=== PATIENT | female | born 1975 | race Caucasian/White ===

== ENCOUNTER 2016-04-22 10:58 | Emergency (ER) | payer OTHER ==
[2016-04-22 13:28] VITALS: BP 120/66
--- NOTE | 2016-04-22 13:54 | UC ---
Throat Pain/Nasal Konstantin HPI - HPI Summary HPI Summary: complaint of sore throat that started 7 days ago nasal congestion pain in the left side of her neck left ear pain sinus pressure and headaches for 2 days feels pressure in her face denies fever and chills not taking any medication for pain at this time - History of Current Complaint Chief Complaint: UCGeneralIllness Stated Complaint: THROAT,LEFT EAR PAIN Time Seen by Provider: 04/22/16 13:48 Hx Obtained From: Patient Hx Last Menstrual Period: 04/01/16 - Allergies/Home Medications Allergies/Adverse Reactions: Allergies Allergy/AdvReac Type Severity Reaction Status Date / Time Naproxen Allergy Intermediate Swelling Verified 04/22/16 13:28 Pseudoephedrine Allergy Swelling Verified 04/22/16 13:28 [From [facility]] Home Medications: Home Medications Ibuprofen TAB* [Motrin TAB* 600 MG] 600 mg PO Q8H PRN 04/22/16 [History Confirmed 04/22/16] Omeprazole CAP* [Prilosec CAP* 20 MG] 20 mg PO DAILY 04/22/16 [History Confirmed 04/22/16] PMH/Surg Hx/FS Hx/Imm Hx Previously Healthy: Yes Endocrine History Of: Denies: Diabetes, Thyroid Disease Cardiovascular History Of: Denies: Cardiac Disorders, Hypertension Respiratory History Of: Reports: Bronchitis Denies: COPD, Asthma GI/ History Of: Denies: Ulcer - Surgical History Surgical History: Yes Surgery Procedure, Year, and Place: C section, R shoulder surgery. D&C WITH REMOVAL OF CYST R SIDE AND BIOPSY OF OVARY--2014 - Family History Known Family History: Positive: Hypertension, Other - Denies FMH sinusitis Negative: Cardiac Disease, Diabetes - Social History Occupation: Employed Full-time Lives: With Family Alcohol Use: None Substance Use Type: None Smoking Status (MU): Heavy Every Day Tobacco Smoker Type: Cigarettes Amount Used/How Often: 1/2 ppd Length of Time of Smoking/Using Tobacco: 22 Years Have You Smoked in the Last Year: Yes Household Exposure Type: Cigarettes Cessation Counseling: Patient Advised to Stop - Immunization History Most Recent Influenza Vaccination: DOES NOT GET FLU SHOT Review of Systems Skin: Negative Eyes: Negative ENT: Sore Throat, Ear Ache, Nasal Discharge Respiratory: Cough Cardiovascular: Negative Gastrointestinal: Negative Genitourinary: Negative Motor: Negative Neurovascular: Negative Musculoskeletal: Negative Neurological: Negative Psychological: Negative All Other Systems Reviewed And Are Negative: Yes Physical Exam Triage Information Reviewed: Yes Appearance: No Pain Distress, Well-Nourished Vital Signs: Initial Vital Signs Temp 99.6 F 04/22/16 13:23 Pulse 81 04/22/16 13:23 Resp 14 04/22/16 13:23 BP 120/66 04/22/16 13:23 Pulse Ox 98 04/22/16 13:23 Vital Signs Reviewed: Yes Eyes: Positive: Conjunctiva Clear ENT: Positive: Pharyngeal erythema, Nasal congestion, Nasal drainage, TM bulging , Tonsillar swelling, Tonsillar exudate, Other: - forntal and maxillary sinus tenderness L more than R. Negative: TM red Neck: Positive: Enlarged Nodes @ - left cervical Respiratory: Positive: Lungs clear, Normal breath sounds, No respiratory distress Cardiovascular: Positive: RRR, No Murmur, Pulses Normal Abdomen Description: Positive: Nontender, Soft Bowel Sounds: Positive: Present Musculoskeletal: Positive: No Edema Neurological: Positive: Alert Psychological Exam: Normal Skin Exam: Normal Throat Pain/Nasal Course/Dx - Differential Dx/Diagnosis Differential Diagnosis/HQI/PQRI: Pharyngitis, Sinusitis, Tonsillitis, URI Provider Diagnoses: sinusitis Discharge - Discharge Plan Condition: Stable Disposition: HOME Prescriptions: Amoxicillin/Clavulanate TAB* [Augmentin TAB 875*] 875 mg PO BID #20 tab Patient Education Materials: Sinusitis (ED) Referrals: Steph Conti MD [Primary Care Provider] - Additional Instructions: SINUSITIS What is Sinusitis? Sinusitis is inflammation or infection of the lining of the sinuses behind the bones in your cheeks or forehead. Sinusitis may occur following a common cold, flu, or other infection; allergies; a tooth infection that spreads to the sinuses; swimming in contaminated water; pressure changes in airplanes at high altitudes; violent sneezing or nose blowing or smoking or breathing other peoples smoke. Symptoms Might Include: Nasal Congestion Sneezing Watery eyes, eye irritation, or eye itching Headaches Pressure in the cheeks Wheezing Trouble smelling Sore throat and coughing may occur Treatment Recommendations: Take medicines as prescribed until completely gone. Drink plenty of fluids. Use saline nose spray to thin the mucous and help the sinuses drain. Use a vaporizer or humidifier. Apply warm compresses to the face or forehead several times a day for 10 to 20 minutes. Call Your Doctor or Return Here IF: Your pain increases during treatment. You develop a high temperature. You develop unusual swelling around the eyes. You have difficulty with your vision. You develop a severe headache, earache, or toothache. You develop increased fever or fever that does not respond to medication such as Tylenol?. You have difficulty breathing or catching your breath. You begin to have any other new symptoms that worry you.
== END 2016-04-22 13:59 | disposition home or self-care (01) ==
LOC: UCCORT 10:58
DX: J32.1 Chronic frontal sinusitis (principal); J32.0 Chronic maxillary sinusitis; F17.210 Nicotine dependence, cigarettes, uncomplicated; Z88.8 Allergy status to other drugs, medicaments and biological substances; Z88.6 Allergy status to analgesic agent
CPT/HCPCS: 99212; G0463

== ENCOUNTER 2016-12-15 11:13 | Emergency (ER) | payer OTHER ==
[2016-12-15 11:53] VITALS: BP 109/58
--- NOTE | 2016-12-15 12:37 | UC ---
Ear Complaint HPI - HPI Summary HPI Summary: Ear pain and fullness, cough, sinus pressure and congestion. left ear pain is severe today. - History of Current Complaint Chief Complaint: UCRespiratory Stated Complaint: FEVER, SINUS PRESSURE Time Seen by Provider: 12/15/16 12:24 Hx Obtained From: Patient Hx Last Menstrual Period: unknown, impl[place] ?: No Onset/Duration: Sudden Onset, Lasting Days Severity Initially: Moderate Severity Currently: Severe Associated Signs/Symptoms: Positive: Hearing Loss, Swelling @, URI Symptoms - Allergies/Home Medications Allergies/Adverse Reactions: Allergies Allergy/AdvReac Type Severity Reaction Status Date / Time Naproxen Allergy Intermediate Swelling Verified 12/15/16 11:53 Pseudoephedrine Allergy Swelling Verified 12/15/16 11:53 [From [facility]] PMH/Surg Hx/FS Hx/Imm Hx Previously Healthy: Yes - Surgical History Surgical History: Yes Surgery Procedure, Year, and Place: C section, R shoulder surgery. D&C WITH REMOVAL OF CYST R SIDE AND BIOPSY OF OVARY--2014 - Family History Known Family History: Positive: Hypertension, Other - Denies FMH sinusitis Negative: Cardiac Disease, Diabetes - Social History Alcohol Use: None Substance Use Type: None Smoking Status (MU): Heavy Every Day Tobacco Smoker Type: Cigarettes Amount Used/How Often: 1/2 ppd Length of Time of Smoking/Using Tobacco: 22 Years Have You Smoked in the Last Year: Yes Household Exposure Type: Cigarettes - Immunization History Most Recent Influenza Vaccination: DOES NOT GET FLU SHOT Review of Systems Constitutional: Fatigue Skin: Negative Eyes: Negative ENT: Sore Throat, Ear Ache, Nasal Discharge, Sinus Congestion Respiratory: Shortness Of Breath, Cough Cardiovascular: Negative Gastrointestinal: Negative Genitourinary: Negative Motor: Negative Neurovascular: Negative Musculoskeletal: Negative Neurological: Headache Is Patient Immunocompromised?: No All Other Systems Reviewed And Are Negative: Yes Physical Exam Triage Information Reviewed: Yes Appearance: Well-Nourished, Ill-Appearing, Pain Distress Vital Signs: Initial Vital Signs Temp 98.7 F 12/15/16 11:49 Pulse 90 12/15/16 11:49 Resp 18 12/15/16 11:49 BP 109/58 12/15/16 11:49 Pulse Ox 100 12/15/16 11:49 Vital Signs Reviewed: Yes Eye Exam: Normal ENT: Positive: Pharyngeal erythema, Nasal congestion, Nasal drainage, TM dull, TM red Dental Exam: Normal Neck exam: Normal Neck: Positive: Supple, Nontender, No Lymphadenopathy Respiratory: Positive: Chest non-tender, Lungs clear, No respiratory distress, No accessory muscle use, Wheezing, Inspiration Cardiovascular Exam: Normal Cardiovascular: Positive: RRR, No Murmur, Pulses Normal Abdominal Exam: Normal Abdomen Description: Positive: Nontender, No Organomegaly, Soft Bowel Sounds: Positive: Present Musculoskeletal Exam: Normal Musculoskeletal: Positive: Strength Intact, ROM Intact, No Edema Neurological Exam: Normal Neurological: Positive: Alert, Muscle Tone Normal Psychological Exam: Normal Skin Exam: Normal Ear Complaint Course/Dx - Course Course Of Treatment: hx obtained, exam performed ,meds reviewed, treated for sinusitis and wheezIng - Differential Dx/Diagnosis Differential Diagnosis/HQI/PQRI: Cerumen Impaction, Otitis Externa, Otitis Media , URI Provider Diagnoses: sinusitis. wheezing Discharge - Discharge Plan Condition: Stable Disposition: HOME Prescriptions: Albuterol HFA INHALER* [Ventolin HFA Inhaler*] 2 puff INH Q4H PRN #1 mdi PRN Reason: Cough Amoxicillin PO (*) [Amoxicillin 875 MG (*)] 875 mg PO BID #20 tab Patient Education Materials: Sinusitis (ED), Warm Compress or Soak (ED) Referrals: Steph Conti MD [Primary Care Provider] - Additional Instructions: 1. Use the medication as prescribed. 2. Get rest and increase fluid intake. 3. Follow up with any worsening symptoms.
== END 2016-12-15 12:38 | disposition home or self-care (01) ==
LOC: UCCORT 11:13
DX: J32.9 Chronic sinusitis, unspecified (principal); F17.210 Nicotine dependence, cigarettes, uncomplicated; R06.2 Wheezing; Z88.6 Allergy status to analgesic agent; Z88.8 Allergy status to other drugs, medicaments and biological substances
CPT/HCPCS: 99212; G0463

== ENCOUNTER 2017-12-09 08:12 | Emergency (ER) | payer BC, MEDICAID, OTHER ==
[2017-12-09 08:25] VITALS: BP 120/75
--- NOTE | 2017-12-09 08:57 | UC ---
Throat Pain/Nasal Konstantin HPI - HPI Summary HPI Summary: sinus pain and pressure x 10 days + nasal congestion, cough , pnd no fever, no chills - History of Current Complaint Chief Complaint: UCGeneralIllness Stated Complaint: SINUS COMPLAINT Time Seen by Provider: 12/09/17 08:28 Hx Obtained From: Patient Hx Last Menstrual Period: tubal / ablasion Onset/Duration: Gradual Onset, Lasting Days - 10, Still Present Severity: Moderate Pain Intensity: 5 Cough: Nonproductive Associated Signs & Symptoms: Positive: Sinus Discomfort, Nasal Discharge, Fever. Negative: Dysphagia, FB Sensation, Drooling, Wheezing, Hoarseness - Allergies/Home Medications Allergies/Adverse Reactions: Allergies Allergy/AdvReac Type Severity Reaction Status Date / Time naproxen Allergy Intermediate Swelling Verified 12/09/17 08:27 pseudoephedrine Allergy Intermediate Swelling Verified 12/09/17 08:27 PMH/Surg Hx/FS Hx/Imm Hx Previously Healthy: Yes GI/ History: Gastroesophageal Reflux - Surgical History Surgical History: Yes Surgery Procedure, Year, and Place: C section, R shoulder surgery. D&C WITH REMOVAL OF CYST R SIDE AND BIOPSY OF OVARY--2014 - Family History Known Family History: Positive: Hypertension, Other - Denies FMH sinusitis Negative: Cardiac Disease, Diabetes - Social History Alcohol Use: None Substance Use Type: None Smoking Status (MU): Heavy Every Day Tobacco Smoker Type: Cigarettes Amount Used/How Often: 1/2 ppd Length of Time of Smoking/Using Tobacco: 22 Years Have You Smoked in the Last Year: Yes Household Exposure Type: Cigarettes - Immunization History Most Recent Influenza Vaccination: DOES NOT GET FLU SHOT Review of Systems Constitutional: Negative Skin: Negative Eyes: Negative ENT: Sore Throat, Nasal Discharge, Sinus Congestion, Sinus Pain/Tenderness Respiratory: Cough Cardiovascular: Negative Is Patient Immunocompromised?: No All Other Systems Reviewed And Are Negative: Yes Physical Exam Triage Information Reviewed: Yes Appearance: Well-Appearing, No Pain Distress, Well-Nourished Vital Signs: Initial Vital Signs Pulse 90 12/09/17 08:22 Resp 18 12/09/17 08:22 BP 120/75 12/09/17 08:22 Pulse Ox 97 12/09/17 08:22 Vital Signs Reviewed: Yes Eye Exam: Normal Eyes: Positive: Conjunctiva Clear ENT: Positive: Normal ENT inspection, Hearing grossly normal, Pharynx normal, Nasal congestion, Nasal drainage, TMs normal Neck exam: Normal Neck: Positive: Supple, Nontender, No Lymphadenopathy Respiratory: Positive: Chest non-tender, Lungs clear, Normal breath sounds Cardiovascular: Positive: RRR, No Murmur, Pulses Normal Skin Exam: Normal Throat Pain/Nasal Course/Dx - Differential Dx/Diagnosis Provider Diagnoses: sinusitis Discharge - Sign-Out/Discharge Documenting (check all that apply): Patient Departure All imaging exams completed and their final reports reviewed: No Studies - Discharge Plan Condition: Stable Disposition: HOME Prescriptions: Amoxicillin/Clavulanate TAB* [Augmentin TAB 875*] 875 mg PO BID #20 tab Patient Education Materials: Sinusitis (ED) Referrals: No Primary Care Phys,NOPCP [Primary Care Provider] - If Needed - Billing Disposition and Condition Condition: STABLE Disposition: Home
== END 2017-12-09 09:06 | disposition home or self-care (01) ==
LOC: UCEAST 08:12
DX: J32.9 Chronic sinusitis, unspecified (principal); Z88.6 Allergy status to analgesic agent; Z88.8 Allergy status to other drugs, medicaments and biological substances; F17.210 Nicotine dependence, cigarettes, uncomplicated
CPT/HCPCS: 99212; G0463

== ENCOUNTER 2018-07-26 07:54 | Emergency (ER) | payer BC ==
--- NOTE | 2018-07-26 08:13 | UC ---
Skin Complaint HPI - HPI Summary HPI Summary: 43 y/o female presents to the urgent care c/o tick bite in her left leg for the past 2 days. Pt reports she removed tick and she thinks it was there for already 2 days since this is where she was outside cleaning her garden. Pt w/ Hx of tick bites in the pat, but has gotten prophylactic treatment. Pt denies pain, rash, REY, fever, joint pain, SOB, chest pain, abdominal pain, N/V/D. - History of Current Complaint Time Seen by Provider: 07/26/18 08:09 Stated Complaint: TICK BITE Hx Obtained From: Patient Hx Last Menstrual Period: tubal / ablasion Onset/Duration: Gradual Onset, Lasting Days - 3 days ago, Resolved - tick removed Skin Exposure Onset/Duration: Days Ago - 5 days ago Timing: Constant Onset Severity: Mild Current Severity: Mild Pain Intensity: 1 - at touch Pain Scale Used: 0-10 Numeric Location: Discrete - inner left thigh Character: Redness Aggravating Factor(s): Touch Alleviating Factor(s): Other - tick removal Associated Signs & Symptoms: Positive: Rash - left inner thigh tick bite. Negative: Fever, Chills Related History: Possible Reaction to: Insect - Allergy/Home Medications Allergies/Adverse Reactions: Allergies Allergy/AdvReac Type Severity Reaction Status Date / Time naproxen Allergy Intermediate Swelling Verified 12/09/17 08:27 pseudoephedrine Allergy Intermediate Swelling Verified 12/09/17 08:27 Home Medications: Home Medications Ibuprofen 200 mg PO Q6HR PRN 07/26/18 [History Confirmed 07/26/18] PMH/Surg Hx/FS Hx/Imm Hx Previously Healthy: Yes GI/ History: Gastroesophageal Reflux - Surgical History Surgical History: Yes Surgery Procedure, Year, and Place: C section, R shoulder surgery. D&C WITH REMOVAL OF CYST R SIDE AND BIOPSY OF OVARY--2014 - Family History Known Family History: Positive: Hypertension, Other - Denies FMH sinusitis Negative: Cardiac Disease, Diabetes Family History: RA - Social History Occupation: Employed Full-time Lives: With Family Alcohol Use: None Substance Use Type: None Smoking Status (MU): Heavy Every Day Tobacco Smoker Type: Cigarettes Amount Used/How Often: 1/2 ppd Length of Time of Smoking/Using Tobacco: 22 Years Have You Smoked in the Last Year: Yes Household Exposure Type: Cigarettes - Immunization History Most Recent Influenza Vaccination: DOES NOT GET FLU SHOT Review of Systems All Other Systems Reviewed And Are Negative: Yes Constitutional: Positive: Negative Skin: Positive: Other - tick bite in the left inner thigh Eyes: Positive: Negative ENT: Positive: Negative Respiratory: Positive: Negative Cardiovascular: Positive: Negative Gastrointestinal: Positive: Negative Genitourinary: Positive: Negative Motor: Positive: Negative Neurovascular: Positive: Negative Musculoskeletal: Positive: Negative Neurological: Positive: Negative Psychological: Positive: Negative Is Patient Immunocompromised?: No Physical Exam - Summary Physical Exam Summary: Vital Signs Reviewed: Yes General: well developed, well nourished female sitting in the examining table w/ o any apparent distress. Eyes: Positive: Conjunctiva Clear - PERRLA, EOMI ENT: Positive: Normal ENT inspection, Hearing grossly normal, Pharynx normal, TMs normal Neck: Positive: Supple, Nontender, No Lymphadenopathy Respiratory: Positive: Chest nontender, Lungs clear, Normal breath sounds Cardiovascular: Positive: RRR, No Murmur, Pulses Normal Abdomen Description: Positive: Nontender, No Organomegaly, Soft. Negative: CVA Tenderness (R), CVA Tenderness (L) Bowel Sounds: Positive: Present Musculoskeletal: Positive: Strength Intact, ROM Intact, No Edema Neurological Exam: Normal Psychological Exam: Normal Skin: Positive: rashes - Proximal medial aspect of Left inner thigh with tick bite with surrounding erythema, non tender to palpation. tick no longer present , no swelling or drainage observed. Triage Information Reviewed: Yes Course/Dx - Course Course Of Treatment: 43 y/o female presents to the urgent care c/o tick bite in her left leg for the past 2 days. Pt reports she removed tick and she thinks it was there for already 2 days since this is where she was outside cleaning her garden. Pt w/ Hx of tick bites in the pat, but has gotten prophylactic treatment. Pt denies pain, rash, REY, fever, joint pain, SOB, chest pain, abdominal pain, N/V/D. Hx obtained. Pt w/ tick bite on the left medial aspect of her left thigh on examination. Area around tick bite cleaned w/ alcohol swabs. Antibiotic prophylaxis with Doxycycline given to the patient to prevent lyme Disease.. Pt tolerated well medication. Pt advised to observe the area for the development or Erythema Migrans for upto 30 days following exposure. Advised if he develops fever or erythema Migrans to return to the clinic or PCP for further treatment. D/C instructions explained. Pt understood and agreed with plan of care. - Differential Diagnoses - Skin Complaint Differential Diagnoses: Abscess, Local Allergic Reaction, MRSA, Tick Born Illness, Other - bee sting, insect bite - Diagnoses Provider Diagnosis: Tick bite of left thigh Discharge - Sign-Out/Discharge Documenting (check all that apply): Patient Departure - D/C home All imaging exams completed and their final reports reviewed: No Studies - Discharge Plan Condition: Stable Disposition: HOME Patient Education Materials: Tick Bite (ED) Referrals: Stanley Goff MD [Primary Care Provider] - 2 Weeks Additional Instructions: 1- Please observe the area for the development or Erythema Migrans for upto 30 days following exposure. Components of the tick saliva can cause transient erythema that should not be confused with Erythema Migrans. If you develop the bull's eye rash, fever, joint pains please return to the urgent care or f/u with your PCP for further management. Please apply Bacitracin oint around tick bite to prevent infection BID x 7 days 2-Antibiotic prophylaxis with Doxycycline was given to you today to prevent lyme Disease. Lyme serology can be drawn in 2 weeks with your PCP to r/o Lyme disease since there is p - Billing Disposition and Condition Condition: STABLE Disposition: Home - Attestation Statements Provider Attestation: I was available for consult. This patient was seen by the REYES. The patient was not presented to , seen by or examined by ia -Nicola Alvarez MD
[2018-07-26 08:18] VITALS: BP 107/63
[2018-07-26] MEDS ORDERED: DOXYcycline CAP(*) 100 MG PO ONE (08:50)
== END 2018-07-26 09:44 | disposition home or self-care (01) ==
LOC: UCCORT 07:54
DX: T63.481A Toxic effect of venom of other arthropod, accidental (unintentional), initial encounter (principal); Y92.007 Garden or yard of unspecified non-institutional (private) residence as the place of occurrence of the external cause; F17.210 Nicotine dependence, cigarettes, uncomplicated
CPT/HCPCS: 99212; A9270-GY; G0463

== ENCOUNTER 2019-04-24 14:39 | Emergency (ER) | payer BC ==
[2019-04-24 17:49] VITALS: BP 118/80
--- NOTE | 2019-04-24 18:01 | UC ---
Throat Pain/Nasal Konstantin HPI - HPI Summary HPI Summary: 43-year-old female who has had cold symptoms for approximately 2 or 3 weeks and now has had congestion, sinus pressure and left earache. - History of Current Complaint Chief Complaint: UCGeneralIllness Stated Complaint: SINUS/EAR COMPLAINT Time Seen by Provider: 04/24/19 17:29 Hx Obtained From: Patient Hx Last Menstrual Period: ablation/also has had tubal ?: No Onset/Duration: Gradual Onset Severity: Mild Pain Intensity: 4 Cough: None Associated Signs & Symptoms: Positive: Sinus Discomfort, Nasal Discharge - Allergies/Home Medications Allergies/Adverse Reactions: Allergies Allergy/AdvReac Type Severity Reaction Status Date / Time naproxen Allergy Intermediate Swelling Verified 04/24/19 17:49 pseudoephedrine Allergy Intermediate Swelling Verified 04/24/19 17:49 PMH/Surg Hx/FS Hx/Imm Hx Previously Healthy: Yes GI/ History: Gastroesophageal Reflux - Surgical History Surgical History: Yes Surgery Procedure, Year, and Place: C section, R shoulder surgery. D&C WITH REMOVAL OF CYST R SIDE AND BIOPSY OF OVARY--2014. uterine ablation. tubal ligation - Family History Known Family History: Positive: Hypertension, Other - Denies FMH sinusitis Negative: Cardiac Disease, Diabetes Family History: RA - Social History Lives: With Family Alcohol Use: None Substance Use Type: None Smoking Status (MU): Heavy Every Day Tobacco Smoker Type: Cigarettes Amount Used/How Often: 1 ppd Length of Time of Smoking/Using Tobacco: 22 Years Have You Smoked in the Last Year: Yes Household Exposure Type: Cigarettes - Immunization History Most Recent Influenza Vaccination: DOES NOT GET FLU SHOT Review of Systems All Other Systems Reviewed And Are Negative: Yes ENT: Positive: Ear Ache - Left earache., Nasal Discharge - Yellow nasal coryza with postnasal drainage., Sinus Congestion, Sinus Pain/Tenderness Is Patient Immunocompromised?: No Physical Exam Triage Information Reviewed: Yes Appearance: Well-Appearing, No Pain Distress, Well-Nourished Vital Signs: Initial Vital Signs Temp 98.7 F 04/24/19 17:46 Pulse 85 04/24/19 17:46 Resp 18 04/24/19 17:46 BP 118/80 04/24/19 17:46 Pulse Ox 97 04/24/19 17:46 Vital Signs Reviewed: Yes Eyes: Positive: Conjunctiva Clear ENT: Positive: Pharynx normal - Yellow postnasal drainage, Nasal congestion, Nasal drainage - Yellow purulent coryza., TMs normal, Sinus tenderness - Bilateral maxillary, Uvula midline Neck: Positive: Supple, Nontender, No Lymphadenopathy Respiratory: Positive: Lungs clear, Normal breath sounds, No respiratory distress, No accessory muscle use Cardiovascular: Positive: RRR, No Murmur, Pulses Normal, Brisk Capillary Refill Musculoskeletal Exam: Normal Neurological Exam: Normal Psychological Exam: Normal Skin Exam: Normal Throat Pain/Nasal Course/Dx - Course Course Of Treatment: Patient is comfortable here. She was given her first dose of Augmentin and will fill the prescription tomorrow. - Differential Dx/Diagnosis Provider Diagnosis: Sinusitis Discharge ED - Sign-Out/Discharge Documenting (check all that apply): Patient Departure All imaging exams completed and their final reports reviewed: No Studies - Discharge Plan Condition: Good Disposition: HOME Prescriptions: Amoxicillin/Clavulanate TAB* [Augmentin TAB 875*] 875 mg PO BID 10 Days #19 tab Patient Education Materials: Sinusitis (ED) Referrals: Stanley Goff MD [Primary Care Provider] - Additional Instructions: Increase fluids, Over the counter cold medicine as directed, follow up with your doctor if no improvement in 4-5 days. - Billing Disposition and Condition Condition: GOOD Disposition: Home
[2019-04-24] MEDS ORDERED: Amoxicillin/Clavulanate TAB* 875 MG PO ONE (18:14)
== END 2019-04-24 18:35 | disposition home or self-care (01) ==
LOC: UCCORT 14:39
DX: J32.9 Chronic sinusitis, unspecified (principal); F17.210 Nicotine dependence, cigarettes, uncomplicated; Z88.6 Allergy status to analgesic agent; Z88.8 Allergy status to other drugs, medicaments and biological substances
CPT/HCPCS: 99212; A9270-GY; G0463